=== PATIENT | female | born 1935 | race Caucasian/White ===

== ENCOUNTER → 2017-03-24 | Outpatient (CLI) | payer OTHER ==
[2017-03-24 13:50] LABS: CALCIUM 10.5 mg/dL (8.7-10.7); SERUM ALBUMIN 4.2 g/dL (3.5-4.8)
[2017-03-24 14:45] LABS: BASOPHILS # (AUTO) 0.16 10*3/UL; BASOPHILS % (AUTO) 1.7 % (0-1); EOSINOPHILS # (AUTO) 0.52 10*3/UL; EOSINOPHILS % (AUTO) 5.6 % (0-8); HEMATOCRIT 49.4 % (37.0-47.0); HEMOGLOBIN 16.2 g/dL (12.0-16.0); MEAN CORPUSCULAR HEMOGLOBIN 27.3 PG (27-31); MEAN CORPUSCULAR HGB CONC 32.8 g/dL (33-37); MEAN CORPUSCULAR VOLUME 83.2 FL (81-99); MEAN PLATELET VOLUME 12.1 FL (7.4-12.2); MONOCYTES # (AUTO) 0.63 10*3/UL (0.3-0.8); MONOCYTES % (AUTO) 6.8 % (5-15); NEUTROPHILS # (AUTO) 5.07 10*3/UL; NEUTROPHILS % (AUTO) 55.2 % (50-80); RED BLOOD COUNT 5.94 10^6/uL (4.20-5.40)
[2017-03-24 14:48] LABS: PLATELET MORPHOLOGY COMMENT NORMAL MORPHOLOGY (NORM); RBC MORPHOLOGY COMMENT NORMAL MORPHOLOGY (NORM); WBC MORPHOLOGY COMMENT NORMAL MORPHOLOGY (NORM)
== END ==
LOC: MOB LAB 12:41
PROVIDERS: ATTEND Physician Assistant Medical
DX: R10.84 Generalized abdominal pain (principal); E11.59 Type 2 diabetes mellitus with other circulatory complications; E78.5 Hyperlipidemia, unspecified; K57.30 Diverticulosis of large intestine without perforation or abscess without bleeding; N39.498 Other specified urinary incontinence; L60.3 Nail dystrophy; R60.0 Localized edema; L84 Corns and callosities
CPT/HCPCS: 80053; 81002; 82150; 82248; 85025; 99214; G0463; 11721; 74177

== ENCOUNTER → 2017-03-24 | Outpatient (CLI) | payer OTHER ==
--- NOTE | 2017-03-24 16:36 | DI ---
CT ABD W/CN AND PELVIS W/CN,03/24/2017 1:28 PM: Clinical History: Abdominal pain. Previous Exam: None at this facility. Findings: Multiple helically acquired CT images are obtained through the chest following the intravenous admini stration of 65 cc of Isovue 300 and oral contrast. The lung bases demonstrate some subsegmental atelectasis. The liver is unremarkable. There is diffuse peripheral vascular disease. The urinary bladder is unremarkable. There are multiple colonic diverticula without CT evidence of acute diverticulitis. Patient is status post cholecystectomy. The spleen and pancreas are unremarkable. There is no mesenteric or retroperitoneal lymphadenopathy. Diffuse degenerative changes of the spine are seen. There is dried stool seen throughout the colon. There is some mild muscular atrophy of the iliopsoas muscles. Impression: 1. Diverticulosis without evidence of acute diverticulitis. 2. No acute intra-abdominal pathology.
== END ==
LOC: CT 13:18
PROVIDERS: ATTEND Physician Assistant Medical
DX: R10.84 Generalized abdominal pain (principal); K57.90 Diverticulosis of intestine, part unspecified, without perforation or abscess without bleeding
CPT/HCPCS: 74177